=== PATIENT | female | born 1965 | race Caucasian/White ===

== ENCOUNTER 2016-07-05 11:36 | Emergency (ER) | payer OTHER ==
[~2016-07-05] VITALS: Ht 170.2 cm; Wt 99.8 kg
[2016-07-05] MEDS ORDERED: BIOT10TA2 PO (11:53)
[2016-07-05] MEDS ORDERED: HYDR12.55 PO (11:53)
[2016-07-05] MEDS ORDERED: MULT1TAB10 PO (11:53)
[2016-07-05] MEDS ORDERED: CALCTAB97 PO (11:53)
[2016-07-05] MEDS ORDERED: VITA500T53 PO (11:53)
[2016-07-05 12:41] VITALS: BP 141/94
[2016-07-05] MEDS ORDERED: ULTR50TA PO (12:41)
--- NOTE | 2016-07-05 12:45 | REP ---
LEFT KNEE, FIVE VIEWS: HISTORY: Pain. There is no acute fracture or dislocation. There is narrowing of the joint spaces. Osteophytes are present on the tibia and patella. Calcification is present posterior to the joint space. This represents ligamentous or tendon calcification. IMPRESSION: Degenerative change as described above. Signed by Bernard Laboy MD 07/05/2016 01:30 P
== END 2016-07-05 12:53 | disposition home or self-care (01) ==
LOC: M ED 12:15
DX: M17.12 Unilateral primary osteoarthritis, left knee (principal); E66.9 Obesity, unspecified; Z98.84 Bariatric surgery status; F17.210 Nicotine dependence, cigarettes, uncomplicated; Z79.899 Other long term (current) drug therapy

== ENCOUNTER → 2016-07-15 | Outpatient (REF) | payer OTHER ==
[~2016-07-15] MED LIST: BIOT10TA2 PO; CALCTAB97 PO; HYDR12.55 PO; MULT1TAB10 PO; ULTR50TA PO; VITA500T53 PO
[2016-07-15 20:06] LABS: BASO % 0.6 % (0.0-1.0); EOS # 0.2 K/mm3 (0.0-0.50); EOS % 3.2 % (0.0-3.0); LARGE UNSTAINED CELL # 0.1 K/mm3 (0.0-0.4); LARGE UNSTAINED CELL % 1.4 % (0.0-4.0); LYMPH # 1.8 K/mm3 (1.5-4.5); MEAN CORPUSCULAR HGB CONC 32.2 g/dl (32.0-36.5); MEAN CORPUSCULAR VOLUME 86.9 fl (80.0-96.0); MONO # 0.3 K/mm3 (0.0-0.8); MONO % 4.3 % (0.0-5.0); NEUTROPHILS # 3.6 K/mm3 (1.8-7.7); NEUTROPHILS % 60.6 % (36.0-66.0); PLATELET COUNT, AUTOMATED 264 k/mm3 (150-450); RED CELL DISTRIBUTION WIDTH 13.7 % (11.5-14.5); WHITE BLOOD COUNT 5.9 K/mm3 (4.0-10.0)
[2016-07-15 20:21] LABS: ALBUMIN 3.6 GM/DL (3.2-5.2); ALBUMIN/GLOBULIN RATIO 1.09 (1.00-1.93); ALKALINE PHOSPHATASE 121 U/L (45-117); ALT/SGPT 26 U/L (12-78); ANION GAP 6 MEQ/L (8-16); AST/SGOT 18 U/L (15-37); BILIRUBIN,TOTAL 0.4 MG/DL (0.2-1.0); BLOOD UREA NITROGEN 14 MG/DL (7-18); CALCIUM LEVEL 8.9 MG/DL (8.5-10.1); CARBON DIOXIDE LEVEL 29 MEQ/L (21-32); CHLORIDE LEVEL 107 MEQ/L (98-107); CHOLESTEROL LEVEL 155 MG/DL (<200); CREATININE FOR GFR 0.65 MG/DL (0.55-1.02); FREE T4 1.33 NG/DL (0.76-1.46); GLOMERULAR FILTRATION RATE > 60.0 (>51); GLUCOSE, FASTING 88 MG/DL (70-105); MAGNESIUM LEVEL 2.1 MG/DL (1.8-2.4); POTASSIUM SERUM 3.9 MEQ/L (3.5-5.1); SODIUM LEVEL 142 MEQ/L (136-145); TOTAL PROTEIN 6.9 GM/DL (6.4-8.2); TRIGLYCERIDES LEVEL 66 MG/DL (<150)
[2016-07-15 20:39] LABS: FOLATE > 24.0 NG/ML; VITAMIN B12 LEVEL > 2000 PG/ML
[2016-07-16 13:20] LABS: PRETREATED FOLATE FOR RBCFOL 15.9 NG/ML
== END ==
LOC: M SFHCADAM 13:57
PROVIDERS: ATTEND Physician Assistant Medical
DX: Z98.84 Bariatric surgery status (principal)

== ENCOUNTER → 2017-04-29 | Outpatient (CLI) | payer OTHER | LOC: M ADAMS 10:38 | DX: M17.12 Unilateral primary osteoarthritis, left knee (principal) | CPT/HCPCS: 73564 ==

== ENCOUNTER → 2017-05-23 | Outpatient (CLI) | payer OTHER | LOC: M WHC 08:27 | DX: Z12.31 Encounter for screening mammogram for malignant neoplasm of breast (principal) | CPT/HCPCS: 77067 ==

== ENCOUNTER → 2018-07-13 | Outpatient (CLI) | payer BC, OTHER ==
[~2018-07-13] MED LIST changes: -ULTR50TA PO; +ULTR50TA8 PO; +VITA500T17 PO; -VITA500T53 PO
--- NOTE | 2018-07-14 23:45 | ECHO ---
DATE OF PROCEDURE: 07/13/2018 REFERRING PROVIDER: Deana Dimas Physician Turf Sales Person INDICATION: Pulmonary hypertension. HEIGHT: 170 cm WEIGHT: 117.9 kg 2D MEASUREMENTS: Left atrium: 4.1 cm Ventricular septum: 1.12 cm Posterior wall: 1.14 cm Left ventricle diastole: 4.1 cm Aortic root: 2.9 cm LVOT: 2.0 cm Inferior vena cava: 1.9 cm (more than 50% respiratory variation). DOPPLER MEASUREMENTS: Aortic valve velocity: 154 cm/s LVOT velocity: 96.1 cm/s LVOT VTI: 20.5 cm No mitral regurgitation. Mitral E velocity: 98.0 cm/s Mitral A velocity: 81.0 cm/s Mitral deceleration time: 268 ms Very mild tricuspid regurgitation. Estimated right ventricle systolic pressure: 27-32 mmHg assuming a right atrial pressure of 5-10 mmHg. No pulmonic regurgitation. Pulmonary acceleration time: 197 ms MITRAL ANNULAR TISSUE DOPPLER: E prime septal: 7.4 cm/s E prime lateral: 10.7 cm/s DESCRIPTION: Rhythm was sinus. Image quality was fair. No pericardial effusion. This was a 2D, M-mode, color flow Doppler and pulse wave Doppler examination and included mitral annular tissue Doppler. CONCLUSIONS: 1. Normal left ventricle internal dimensions and wall thickness. Normal regional left ventricular (LV) wall motion and wall thickening. Normal LV systolic function. Left ventricular ejection fraction (LVEF) 59% (2D). Normal LV diastolic function. 2. Mild mitral annular calcification. No mitral regurgitation. 3. Mild left atrial dilatation. 4. Suggestive of normal estimated right ventricle systolic pressure and pulmonary artery systolic pressure.
== END ==
LOC: M CARPUL 08:11
PROVIDERS: ATTEND Physician Assistant Medical
DX: I27.20 Pulmonary hypertension, unspecified (principal)

== ENCOUNTER → 2018-07-24 | Outpatient (REF) | payer OTHER ==
[2018-07-24 13:19] LABS: BASO # 0.1 10^3/uL (0.0-0.2); BASO % 1.1 % (0.0-1.0); EOS # 0.2 10^3/uL (0.0-0.50); EOS % 3.5 % (0.0-3.0); LYMPH # 1.7 10^3/uL (1.5-4.5); LYMPH % 30.3 % (24.0-44.0); MEAN CORPUSCULAR HEMOGLOBIN 27.3 pg (27.0-33.0); MEAN CORPUSCULAR HGB CONC 31.8 g/dl (32.0-36.5); MEAN CORPUSCULAR VOLUME 85.8 fl (80.0-96.0); MONO # 0.4 10^3/uL (0.0-0.8); MONO % 7.5 % (0.0-5.0); NEUTROPHILS # 3.1 10^3/uL (1.8-7.7); NEUTROPHILS % 57.4 % (36.0-66.0); PLATELET COUNT, AUTOMATED 262 10^3/uL (150-450); RED BLOOD COUNT 5.13 10^6/uL (4.00-5.40); WHITE BLOOD COUNT 5.4 10^3/uL (4.0-10.0)
[2018-07-24 13:31] LABS: ALBUMIN 3.3 GM/DL (3.2-5.2); ALT/SGPT 26 U/L (12-78); BILIRUBIN,TOTAL 0.5 MG/DL (0.2-1.0); BLOOD UREA NITROGEN 15 MG/DL (7-18); CALCIUM LEVEL 8.9 MG/DL (8.5-10.1); CARBON DIOXIDE LEVEL 30 MEQ/L (21-32); CHLORIDE LEVEL 107 MEQ/L (98-107); CHOLESTEROL LEVEL 187 MG/DL (<200); CHOLESTEROL RISK RATIO 2.968 (<5); CREATININE FOR GFR 0.62 MG/DL (0.55-1.30); FERRITIN 112 NG/ML (8-252); FREE T4 1.16 NG/DL (0.76-1.46); GLOMERULAR FILTRATION RATE > 60.0 (>51); GLUCOSE, FASTING 79 MG/DL (70-100); HDL CHOLESTEROL 63 MG/DL (>40); IRON (FE) 112 UG/DL (50-170); LDL CHOLESTEROL 108 MG/DL (<100); NON-HDL-C 124 MG/DL; PERCENT SATURATION 29.3 % (13.2-45.0); POTASSIUM SERUM 4.4 MEQ/L (3.5-5.1); SODIUM LEVEL 141 MEQ/L (136-145); TOTAL IRON BINDING CAPACITY 382 UG/DL (250-450); TOTAL PROTEIN 6.9 GM/DL (6.4-8.2); TRIGLYCERIDES LEVEL 79 MG/DL (<150)
[2018-07-24 13:36] LABS: FOLATE 19.2 NG/ML; TOTAL 25(OH) VITAMIN D 30.3 NG/ML (30.0-100.0); VITAMIN B12 LEVEL 527 PG/ML
== END ==
LOC: M SFHCADAM 11:03
PROVIDERS: ATTEND Physician Assistant Medical
DX: Z00.00 Encounter for general adult medical examination without abnormal findings (principal); I27.20 Pulmonary hypertension, unspecified; E55.9 Vitamin D deficiency, unspecified; Z98.84 Bariatric surgery status; H53.9 Unspecified visual disturbance

== ENCOUNTER 2019-04-03 09:08 | Emergency (ER) | payer OTHER ==
[~2019-04-03] VITALS: Ht 170.2 cm; Wt 127.3 kg
[2019-04-03] MEDS ORDERED: FERR325T18 PO (09:14)
[2019-04-03] MEDS ORDERED: KETOROLAC 60 MG/2 ML VIAL (J1885) IM ONE (09:45)
[2019-04-03] MEDS ORDERED: ACETAMINOPHEN 500 MG TAB PO ONE (10:15)
--- NOTE | 2019-04-03 10:55 | REP ---
Left rib series: Five views including PA chest. History: Pain after fall. Findings: PA chest radiograph shows no evidence of pneumothorax or hydrothorax. Mediastinum is not widened. Pleural angles are sharp. Heart size. Lung olson are clear. Multiple views of the left rib cage show no visible rib fracture or bony destructive lesion. Impression: Negative left rib radiographs. No rib fracture visible. Electronically Signed by Teddy Alexis MD 04/03/2019 09:34 A
[2019-04-03] MEDS ORDERED: PERCOCET 5MG/325MG TAB PO ONE (11:00)
--- NOTE | 2019-04-03 12:24 | REP ---
CT CHEST WITHOUT CONTRAST: HISTORY: Moderate to severe left rib pain. Comparison is made with today's rib radiographs. CT FINDINGS: There is no evidence of pulmonary contusion, hemothorax, or pneumothorax on either side. There is mild bibasilar platelike atelectasis, right a little bit more prominent than left. No pulmonary contusion is seen. Lung olson are otherwise clear. No extrathoracic contusion or hematoma is appreciated. Bone window settings show degenerative disc changes in the thoracic spine. No rib fracture or deformity is seen. No other fracture is appreciated. There is no evidence of mediastinal hematoma or mass. Mild vascular calcification is observed along the distribution of the coronary arteries. The patient is status post gastric bypass procedure. Upper abdominal images demonstrate a very large heterogeneous infiltrative-appearing mass occupying a significant portion of the right lobe of the liver, 13.7 x 8.4 cm in greatest transverse dimension. This extends off the bottom of the imaging field of view. Hepatobiliary malignancy must be suspected. No splenic abnormality is seen. No bony destructive lesion is appreciated. IMPRESSION: 1. Bibasilar platelike atelectasis. No rib lesion seen. No rib fracture noted. 2. Patient status post gastric bypass procedure. 3. There is a very large heterogeneous mass in the right lobe of the liver suspicious for primary hepatobiliary malignancy, 13.7 x 8.4 cm. This extends off the imaging field of view. Consider CT abdomen and pelvis, preferably with IV and oral contrast, if feasible. Electronically Signed by Teddy Alexis MD 04/03/2019 12:36 P
[2019-04-03] MEDS: GASTROGRAFIN SOLUTION 30ML PO SCH ×2 (12:28→13:02)
[2019-04-03 12:39] LABS: BASO # 0.1 10^3/uL (0.0-0.2); BASO % 0.9 % (0.0-1.0); EOS # 0.2 10^3/uL (0.0-0.5); EOS % 2.4 % (0.0-3.0); HEMATOCRIT 44.7 % (36.0-47.0); HEMOGLOBIN 13.7 g/dl (12.0-15.5); LYMPH % 28.8 % (24.0-44.0); MEAN CORPUSCULAR HEMOGLOBIN 26.8 pg (27.0-33.0); MEAN CORPUSCULAR HGB CONC 30.6 g/dl (32.0-36.5); MEAN CORPUSCULAR VOLUME 87.5 fl (80.0-96.0); MONO # 0.5 10^3/uL (0.0-0.8); MONO % 6.9 % (0.0-5.0); NEUTROPHILS # 4.1 10^3/uL (1.5-8.5); NEUTROPHILS % 60.7 % (36.0-66.0); PLATELET COUNT, AUTOMATED 277 10^3/uL (150-450); RED BLOOD COUNT 5.11 10^6/uL (4.00-5.40); WHITE BLOOD COUNT 6.8 10^3/uL (4.0-10.0)
[2019-04-03 13:00] LABS: ALBUMIN 3.6 GM/DL (3.2-5.2); ALT/SGPT 48 U/L (12-78); BILIRUBIN,DIRECT 0.2 MG/DL (0.0-0.2); BILIRUBIN,TOTAL 0.6 MG/DL (0.2-1.0); BLOOD UREA NITROGEN 15 MG/DL (7-18); CALCIUM LEVEL 8.5 MG/DL (8.5-10.1); CARBON DIOXIDE LEVEL 26 MEQ/L (21-32); CHLORIDE LEVEL 107 MEQ/L (98-107); CREATININE FOR GFR 0.64 MG/DL (0.55-1.30); GLOMERULAR FILTRATION RATE > 60.0 (>51); GLUCOSE, FASTING 94 MG/DL (70-100); LIPASE 96 U/L (73-393); POTASSIUM SERUM 3.9 MEQ/L (3.5-5.1); SODIUM LEVEL 141 MEQ/L (136-145); TOTAL PROTEIN 6.9 GM/DL (6.4-8.2)
[2019-04-03] MEDS ORDERED: ISOVUE-370 76% 100ML VIAL (Q9967) As Ordered ONE (14:00)
[2019-04-03] MEDS ORDERED: MORPHINE 4 MG/ML 1ML VIAL/SYRINGE (J2270) IV ONE (14:30)
--- NOTE | 2019-04-03 14:44 | REP ---
CT ABDOMEN/PELVIS WITH IV AND ORAL CONTRAST: HISTORY: Suspicious liver mass seen on chest CT study. No comparison study. CT CONTRAST DOSE: 100 mL of intravenous Isovue-[address] FINDINGS: Digital preliminary fire technician radiograph demonstrates a few loops of air-filled small bowel in the left abdomen. The liver silhouette is enlarged on the fire technician view. The lung bases demonstrate minimal linear discoid atelectasis. The patient is status post gastric bypass and cholecystectomy. The spleen is normal in size, homogeneous in texture. Normal adrenal glands are seen bilaterally. Abdominal CT study confirms the presence of a heterogeneous, large solid mass in the right lobe of the liver occupying much of the right lobe of the liver as seen on CT. There is patchy enhancement within the lesion. The lesion's overall dimensions are 16.3 cm craniocaudal by 13.1 cm anteroposterior by 10.2 cm right to left. The mass occupies the inferior aspect of the liver, and there is overall hepatomegaly as a result. The mass is large and confluent. There is no evidence of upper abdominal lymphadenopathy or retroperitoneal lymphadenopathy. No pancreatic mass lesion is seen. The kidneys enhance symmetrically. The right kidney is compressed posteriorly by the liver mass. No hydronephrosis is seen. Small and large bowel loops are unremarkable. No bowel wall mass lesion is observed. The uterus is heterogeneous and enlarged, consistent with fibroid change. It measures 9.9 cm right to left by 9.1 cm in length by 4.4 cm anterior to posterior. No visible ovarian mass is seen. The appendix is not directly visualized, but there are no inflammatory changes. No abdominal wall defect is seen. No bony destructive lesion is observed. IMPRESSION: 1. There is an irregular heterogeneously enhancing 16.3 cm right lobe hepatic mass. There is no evidence of intra-abdominal lymphadenopathy or bowel wall mass. This is most compatible with primary cholangiocarcinoma or hepatocellular carcinoma. If there are comparison CT studies, these would be most helpful for further review. 2. Nodular enlargement of the uterus consistent with fibroids. 3. Status post cholecystectomy and gastric bypass. Electronically Signed by Teddy Alexis MD 04/03/2019 03:08 P
[2019-04-03 15:15] VITALS: BP 183/90
[2019-04-03] MEDS ORDERED: IBUP80TA PO (15:24)
[2019-04-03] MEDS ORDERED: ACET-683 PO (15:24)
--- NOTE | 2019-04-07 14:21 | ED PDOC ---
Post-Departure Follow-Up michelle levi faxed formal report of ct abd/p for fu Hattie Williamson MD Apr 07, 2019 14:21
--- NOTE | 2019-04-07 14:22 | ED PDOC ---
Post-Departure Follow-Up michelle levi faxed formal report of ct chest for fu Hattie Williamson MD Apr 07, 2019 14:22
== END 2019-04-03 15:28 | disposition home or self-care (01) ==
LOC: M ED 09:08
DX: S20.02XA Contusion of left breast, initial encounter (principal); Y92.009 Unspecified place in unspecified non-institutional (private) residence as the place of occurrence of the external cause; Y93.01 Activity, walking, marching and hiking; Y99.9 Unspecified external cause status; R07.81 Pleurodynia; N85.2 Hypertrophy of uterus; K76.89 Other specified diseases of liver; J98.11 Atelectasis; Z78.0 Asymptomatic menopausal state; Z91.030 Bee allergy status; Z98.84 Bariatric surgery status; W01.190A Fall on same level from slipping, tripping and stumbling with subsequent striking against furniture, initial encounter
CPT/HCPCS: 71101; 71250; 74177; 80048; 80076; 83690; 85025; 96372; 96374; 99284; J1885; J2270; Q9963; Q9967

== ENCOUNTER → 2019-12-22 | Outpatient (CLI) | payer OTHER ==
[~2019-12-22] MED LIST changes: +ACET-683 PO; +FERR325T18 PO; +IBUP80TA PO
[2019-12-22 14:18] LABS: PERCENT SATURATION 18.2 % (13.2-45.0); PREALBUMIN 20.5 MG/DL (20.0-40.0)
[2019-12-22 14:24] LABS: TOTAL 25(OH) VITAMIN D 33.4 NG/ML (30.0-100.0)
[2019-12-22 14:25] LABS: FOLATE 14.6 NG/ML (>5.4)
[2019-12-28 11:12] LABS: VITAMIN A, RETINOL LEVEL 48.9 ug/dL (20.1-62.0); VITAMIN B1 LEVEL WHOLE BLOOD 158.7 nmol/L (66.5-200.0); VITAMIN B6,PYRIDOXAL PHOSPHATE 5.7 ug/L (2.0-32.8)
== END ==
LOC: M LABDRWAD 09:06
PROVIDERS: ATTEND Physician Assistant
DX: R63.5 Abnormal weight gain (principal)

== ENCOUNTER → 2020-05-02 | Outpatient (CLI) | payer OTHER ==
[~2020-05-02] MED LIST changes: +ISOVUE-370 76% 100ML VIAL As Ordered ONE
--- NOTE | 2020-05-03 07:00 | REP ---
INDICATION: HEMANGIOMA LIVER. COMPARISON: 04/03/2019 TECHNIQUE: Axial contrast-enhanced images from the lung bases to the pubic symphysis using 100 cc Isovue 370 intravenous contrast material. Delayed images of the abdomen along with coronal and sagittal reformations obtained.. This CT examination was performed using the following dose reduction techniques: Automated exposure control, adjustment of mA and/or kv according to the patient's size, and the use of iterative reconstruction technique. FINDINGS: Giant cavernous hemangioma occupying much of the right hepatic and medial left hepatic lobes is again identified and essentially stable. No new hepatic lesions are appreciated. Spleen, pancreas, bilateral adrenal glands and kidneys are normal. Evidence for prior cholecystectomy. Evidence for prior gastric bypass surgery noted. The enteric system including small and large bowel appears normal. No evidence for obstruction or acute inflammatory process. Normal terminal ileum and appendix are identified in the right lower quadrant. Pelvis demonstrates normal bladder and enlarged multilobulated myomatous uterus. No ascites. No free air. No intraperitoneal or retroperitoneal adenopathy. Abdominal aorta and vasculature appear normal. Musculoskeletal structures are intact and without acute osseous abnormality. IMPRESSION: 1. No acute abdominopelvic pathology appreciated. 2. Stable complex large hepatic mass consistent with the given history of giant cavernous hepatic hemangioma remains stable. 3. Enlarged multilobulated myomatous uterus remains stable. <Electronically signed by Kiran Dubon > 05/03/20 [id number]
== END ==
LOC: M RAD 11:41
PROVIDERS: ATTEND Surgery
DX: D18.03 Hemangioma of intra-abdominal structures (principal)
CPT/HCPCS: 74177; Q9967

== ENCOUNTER → 2020-06-09 | Outpatient (CLI) | payer OTHER ==
[~2020-06-09] MED LIST changes: +CALC250T PO; +D31000TA2 PO; +IRON27TA2 PO; -ISOVUE-370 76% 100ML VIAL As Ordered ONE; +VITMTA PO
== END ==
LOC: M LABSMTC 09:52
PROVIDERS: ATTEND Anesthesiology
DX: Z01.812 Encounter for preprocedural laboratory examination (principal); Z20.822 Contact with and (suspected) exposure to COVID-19

== ENCOUNTER 2020-06-14 06:07 | Day surgery (SDC) | payer OTHER ==
[~2020-06-14] VITALS: Ht 170.2 cm; Wt 134.6 kg
[2020-06-14] MEDS ORDERED: ceFAZolin SOD 2 GM in IV 1 EA IV ONE (07:00)
[2020-06-14] MEDS ORDERED: LR 1,000 ML IV ONE (07:00)
[2020-06-14] MEDS ORDERED: dexameTHASONE 4 MG/ML 1ML VIAL (J1100 PER 1MG) As Ordered ONE ×2 (07:13→07:20)
[2020-06-14] MEDS ORDERED: BUPIVACAINE HCL 0.5% 10ML VIAL As Ordered ONE (07:13)
[2020-06-14] MEDS ORDERED: LIDOCAINE 1% MDV 20ML VIAL As Ordered ONE (07:13)
[2020-06-14] MEDS ORDERED: propofoL 200 MG/20 ML VIAL As Ordered ONE ×2 (07:20→08:10)
[2020-06-14] MEDS ORDERED: LIDOCAINE 2% 100MG/5ML SDV (FOR ANES.) As Ordered ONE (07:20)
[2020-06-14] MEDS ORDERED: KETOROLAC 60MG 2ML VIAL As Ordered ONE (07:20)
[2020-06-14] MEDS ORDERED: ONDANSETRON 4MG/2ML VIAL As Ordered ONE (07:20)
[2020-06-14] MEDS ORDERED: MIDAZOLAM INJ 2MG/2ML VIAL (J2250 PER 1MG) As Ordered ONE (07:20)
[2020-06-14] MEDS ORDERED: fentaNYL 100 MCG/2 ML INJECTION (J3010) As Ordered ONE (07:21)
[2020-06-14] MEDS ORDERED: ACETAMINOPHEN 1000MG 100ML IV BTL (OFIRMEV) (J0131 PER 10MG) As Ordered ONE (08:05)
[2020-06-14] MEDS ORDERED: HYDR-3713 PO (08:50)
[2020-06-14 09:15] VITALS: BP 128/75
[2020-06-14] MEDS ORDERED: fentaNYL 100 MCG/2 ML INJECTION (J3010) IV PRN (09:40)
[2020-06-14] MEDS ORDERED: METOCLOPRAMIDE INJ 10MG/2ML VIAL (J2765 PER 1) IV PRN (09:40)
[2020-06-14] MEDS ORDERED: LR 1,000 ML IV SCH (09:40)
[2020-06-14] MEDS ORDERED: ONDANSETRON 4MG/2ML VIAL IV PRN (09:40)
[2020-06-14] MEDS ORDERED: PERCOCET 5MG/325MG TAB PO PRN (09:40)
--- NOTE | 2020-06-14 10:02 | RO ---
OPERATIVE NOTE DATE OF OPERATION: 06/14/2020 PREOPERATIVE DIAGNOSIS: Left foot bunion, hallux valgus and 2nd hammertoe. POSTOPERATIVE DIAGNOSIS: Left foot bunion, hallux valgus and 2nd hammertoe. PROCEDURE: Left foot bunionectomy with 1st metatarsal osteotomy, Fabian osteotomy and 2nd toe flexor tenotomy. SURGEON: Alfredo Brooks DPM TERRITORY SERVICE REPRESENTATIVE: None. ANESTHESIA: Monitored anesthesia care, preop injection of 20 mL of 1:1 mixture of 1% Lidocaine plain and 0.5% Marcaine plain. ESTIMATED BLOOD LOSS: Minimal. MATERIALS: Arthrex 3.5 headless screw, Arthrex DynaNite staple, 3-0 and 4-0 Vicryl and 4-0 nylon. INJECTABLES: 1 mL Decadron 4 mg per mL. COMPLICATIONS: None. CONDITION: Stable. INDICATIONS: Sharla De Souza is a 55-year-old female who presents to [facility] with complaints of painful bunion and 2nd hammertoe on her left foot. She presents today for surgical correction. The patient site and side were identified and marked in preoperative area. Consent was reviewed and obtained. All risks, complications and alternatives to the procedure were explained to the patient in detail, all questions were answered. DESCRIPTION OF PROCEDURE: The patient was brought to the operating room and placed on the operating room table in supine position. Monitored anesthesia care was delivered by the anesthesia team. Preop injection of 20 mL of 1:1 mixture of 1% Lidocaine plain and 0.5% Marcaine plain were injected into left foot. The left foot was prepped and draped in normal sterile fashion. Tourniquet was applied to the left ankle and inflated to 225 mmHg. Dorsal incision was made over the 1st metatarsal and carried through with #15 blade. Dissection was carried down to the 1st metatarsocuneiform joint. T-capsulotomy was performed exposing the metatarsal head. Following this a lateral release was performed releasing the adductor tendon, lateral capsule and sesamoidal ligament. McGlamry elevator was used to release the plantar structures. Following this the medial eminence was resected with sagittal saw and osteotomy was performed of the metatarsal head transposing it laterally. This was fixated with Arthrex 3.5 headless compression screw. Remaining bone edges were removed with sagittal saw and smoothed with rasp. Following this attention was paid to the proximal phalanx. A medial wedge of the cortex was removed using sagittal saw and the toe was placed in more rectus medial position and fixated with Arthrex DynaNite staple. Site was irrigated with saline. Capsular repair was performed with 3-0 Vicryl, subcutaneous tissues closed with 4-0 Vicryl and skin closed with 4-0 nylon. Attention was paid to the 2nd toe. A percutaneous flexor tenotomy was performed using 18-gauge needle at the plantar surface of the 2nd toe. Good improvement in the position was noted. 1 mL Decadron was injected. Sterile dressings were applied. Tourniquet was deflated. The patient was brought to PACU with vital signs stable and neurovascular status intact. She will be partial weightbearing. She will follow up in office in two days.
== END 2020-06-14 09:40 | disposition home or self-care (01) ==
LOC: M SDC 06:07
PROVIDERS: ATTEND Podiatrist Foot & Ankle Surgery
DX: M21.612 Bunion of left foot (principal); M20.12 Hallux valgus (acquired), left foot; M20.42 Other hammer toe(s) (acquired), left foot; K76.9 Liver disease, unspecified; Z91.030 Bee allergy status; Z79.899 Other long term (current) drug therapy
CPT/HCPCS: 28232; 28299; 88300; 97116; C1713; J0131; J0690; J1100; J2250; J2405; J3010

== ENCOUNTER → 2021-03-07 | Outpatient (CLI) | payer OTHER ==
[~2021-03-07] MED LIST changes: +HYDR-3713 PO
== END ==
LOC: M WHC 08:39
PROVIDERS: ATTEND Nurse Practitioner Women's Health
DX: Z12.31 Encounter for screening mammogram for malignant neoplasm of breast (principal); Z78.0 Asymptomatic menopausal state

== ENCOUNTER → 2021-03-07 | Outpatient (REF) | payer OTHER | LOC: M SFHCWAGY 13:22 | PROVIDERS: ATTEND Nurse Practitioner Women's Health | DX: Z12.4 Encounter for screening for malignant neoplasm of cervix (principal); Z77.9 Other contact with and (suspected) exposures hazardous to health ==

== ENCOUNTER → 2021-06-05 | Outpatient (CLI) | payer OTHER ==
[~2021-06-05] MED LIST changes: -D31000TA2 PO; +VITA100093 PO
== END ==
LOC: M ADAMS 11:15
PROVIDERS: ATTEND Physician Assistant Medical
DX: M25.561 Pain in right knee (principal); M17.11 Unilateral primary osteoarthritis, right knee

== ENCOUNTER → 2021-06-05 | Outpatient (REF) | payer OTHER ==
[2021-06-05 12:45] LABS: BASO # 0.1 10^3/uL (0.0-0.2); EOS # 0.1 10^3/uL (0.0-0.5); EOS % 2.4 % (0.0-3.0); HEMATOCRIT 43.8 % (36.0-47.0); HEMOGLOBIN 14.1 g/dl (12.0-15.5); LYMPH # 1.8 10^3/uL (1.5-5.0); MEAN CORPUSCULAR HEMOGLOBIN 26.9 pg (27.0-33.0); MEAN CORPUSCULAR HGB CONC 32.2 g/dl (32.0-36.5); MEAN CORPUSCULAR VOLUME 83.6 fl (80.0-96.0); MONO # 0.4 10^3/uL (0.0-0.8); MONO % 6.9 % (2.0-8.0); NEUTROPHILS # 3.4 10^3/uL (1.5-8.5); NEUTROPHILS % 58.5 % (36.0-66.0); PLATELET COUNT, AUTOMATED 265 10^3/uL (150-450); RED BLOOD COUNT 5.24 10^6/uL (4.00-5.40); WHITE BLOOD COUNT 5.8 10^3/uL (4.0-10.0)
[2021-06-05 13:34] LABS: ALBUMIN 3.5 GM/DL (3.2-5.2); ALT/SGPT 31 U/L (12-78); BILIRUBIN,TOTAL 0.3 MG/DL (0.2-1.0); BLOOD UREA NITROGEN 19 MG/DL (7-18); CALCIUM LEVEL 8.6 MG/DL (8.5-10.1); CARBON DIOXIDE LEVEL 29 MEQ/L (21-32); CHLORIDE LEVEL 109 MEQ/L (98-107); CHOLESTEROL LEVEL 181 MG/DL (<200); CHOLESTEROL RISK RATIO 2.919 (<5); CREATININE FOR GFR 0.59 MG/DL (0.55-1.30); GLOMERULAR FILTRATION RATE > 60.0 (>51); GLUCOSE, FASTING 78 MG/DL (70-100); HDL CHOLESTEROL 62 MG/DL (>40); IRON (FE) 66 UG/DL (50-170); LDL CHOLESTEROL 97 MG/DL (<100); MAGNESIUM LEVEL 2.2 MG/DL (1.8-2.4); NON-HDL-C 119 MG/DL; PERCENT SATURATION 17.2 % (13.2-45.0); SODIUM LEVEL 142 MEQ/L (136-145); TOTAL IRON BINDING CAPACITY 383 UG/DL (250-450); TOTAL PROTEIN 6.6 GM/DL (6.4-8.2); TRIGLYCERIDES LEVEL 109 MG/DL (<150)
[2021-06-05 13:35] LABS: FOLATE 22.7 NG/ML; FREE T4 1.17 NG/DL (0.76-1.46); TOTAL 25(OH) VITAMIN D 38.2 NG/ML (30.0-100.0); VITAMIN B12 LEVEL 399 PG/ML
== END ==
LOC: M SFHCADAM 10:32
PROVIDERS: ATTEND Physician Assistant Medical
DX: E66.01 Morbid (severe) obesity due to excess calories (principal); Z98.84 Bariatric surgery status; E55.9 Vitamin D deficiency, unspecified

== ENCOUNTER → 2021-06-26 | Outpatient (CLI) | payer OTHER | LOC: M CARPUL 11:32 | PROVIDERS: ATTEND Physician Assistant Medical | DX: R60.1 Generalized edema (principal) ==

== ENCOUNTER → 2022-02-06 | Outpatient (CLI) | payer OTHER | LOC: M SOG 08:02 | PROVIDERS: ATTEND Orthopaedic Surgery Adult Reconstructive Orthopaedic Surgery | DX: M25.761 Osteophyte, right knee (principal) ==

== ENCOUNTER → 2022-03-13 | Outpatient (CLI) | payer OTHER ==
[~2022-03-13] MED LIST changes: +E-Z-GAS II EFFERVESCENT PACKET (SODIUM BICARB./CITRIC ACID/SIMETHICONE) As Ordered ONE; +E-Z-HD 98% w/w 340GM SUSP BTL As Ordered ONE; +E-Z-PAQUE 96% w/w SUSP 176GM BTL As Ordered ONE
== END ==
LOC: M RAD 07:46
PROVIDERS: ATTEND Surgery
DX: Z98.84 Bariatric surgery status (principal); E66.01 Morbid (severe) obesity due to excess calories; R63.5 Abnormal weight gain

== ENCOUNTER → 2022-04-30 | Outpatient (CLI) | payer OTHER ==
[~2022-04-30] MED LIST changes: -E-Z-GAS II EFFERVESCENT PACKET (SODIUM BICARB./CITRIC ACID/SIMETHICONE) As Ordered ONE; -E-Z-HD 98% w/w 340GM SUSP BTL As Ordered ONE; -E-Z-PAQUE 96% w/w SUSP 176GM BTL As Ordered ONE
[2022-04-30 14:40] LABS: BASO # 0.1 10^3/uL (0.0-0.2); BASO % 1.2 % (0.0-1.0); EOS # 0.2 10^3/uL (0.0-0.5); EOS % 4.1 % (0.0-3.0); HEMATOCRIT 44.3 % (36.0-47.0); HEMOGLOBIN 13.7 g/dl (12.0-15.5); LYMPH # 1.7 10^3/uL (1.5-5.0); LYMPH % 30.7 % (24.0-44.0); MEAN CORPUSCULAR HGB CONC 30.9 g/dl (32.0-36.5); MEAN CORPUSCULAR VOLUME 87.2 fl (80.0-96.0); MONO # 0.5 10^3/uL (0.0-0.8); MONO % 8.6 % (2.0-8.0); NEUTROPHILS # 3.1 10^3/uL (1.5-8.5); PLATELET COUNT, AUTOMATED 289 10^3/uL (150-450); RED BLOOD COUNT 5.08 10^6/uL (4.00-5.40); WHITE BLOOD COUNT 5.7 10^3/uL (4.0-10.0)
[2022-04-30 14:43] LABS: HEMOGLOBIN A1c 5.5 % (4.0-6.0)
[2022-04-30 15:03] LABS: TOTAL IRON BINDING CAPACITY 375 UG/DL (250-425)
[2022-04-30 15:05] LABS: ALBUMIN 3.4 G/DL (3.2-5.2); ALKALINE PHOSPHATASE 146 U/L (46-116); ALT/SGPT 21 U/L (7.0-40); AST/SGOT 10 U/L (<34); BILIRUBIN,TOTAL 0.4 MG/DL (0.3-1.2); BLOOD UREA NITROGEN 16 MG/DL (9-23); CALCIUM LEVEL 8.9 MG/DL (8.5-10.1); CARBON DIOXIDE LEVEL 30 MMOL/L (20-31); CHLORIDE LEVEL 109 MMOL/L (98-107); CHOLESTEROL LEVEL 189 MG/DL (<200); CHOLESTEROL RISK RATIO 3.13 (<5); CREATININE FOR GFR 0.67 MG/DL (0.55-1.30); GLOMERULAR FILTRATION RATE > 60.0 (>51); GLUCOSE, FASTING 85 MG/DL (60-100); HDL CHOLESTEROL 60.3 MG/DL (>40); IRON (FE) 74 UG/DL (50-170); LDL CHOLESTEROL 108.5 MG/DL (<100); NON-HDL-C 129 MG/DL; PERCENT SATURATION 19.7 % (13.2-45.0); POTASSIUM SERUM 4.5 MMOL/L (3.5-5.1); SODIUM LEVEL 140 MMOL/L (136-145); TOTAL PROTEIN 6.3 G/DL (5.7-8.2); TRIGLYCERIDES LEVEL 101 MG/DL (<150)
[2022-04-30 15:08] LABS: FERRITIN 69.7 NG/ML (7.3-270.7); THYROID STIMULATING HORMONE 1.459 uIU/ML (0.55-4.78)
[2022-04-30 15:09] LABS: FOLATE 20.67 NG/ML (>5.4)
[2022-04-30 15:13] LABS: VITAMIN B12 LEVEL > 2000 PG/ML (211-911)
== END ==
LOC: M LABDRWAD 09:16
PROVIDERS: ATTEND Physician Assistant
DX: E66.01 Morbid (severe) obesity due to excess calories (principal)

== ENCOUNTER → 2022-04-30 | Outpatient (CLI) | payer OTHER | LOC: M EKG 09:53 | PROVIDERS: ATTEND Physician Assistant | DX: E66.01 Morbid (severe) obesity due to excess calories (principal) ==

== ENCOUNTER → 2022-10-08 | Outpatient (REF) | payer OTHER | LOC: M SFHCWAGY 17:44 | PROVIDERS: ATTEND Nurse Practitioner Family | DX: Z12.4 Encounter for screening for malignant neoplasm of cervix (principal) ==

== ENCOUNTER → 2022-12-03 | Outpatient (CLI) | payer OTHER ==
[2022-12-03 10:35] LABS: HEMATOCRIT 43.1 % (36.0-47.0); HEMOGLOBIN 13.8 g/dl (12.0-15.5); MEAN CORPUSCULAR HEMOGLOBIN 28.1 pg (27.0-33.0); MEAN CORPUSCULAR VOLUME 87.8 fl (80.0-96.0); PLATELET COUNT, AUTOMATED 271 10^3/uL (150-450); RED BLOOD COUNT 4.91 10^6/uL (4.00-5.40); WHITE BLOOD COUNT 4.8 10^3/uL (4.0-10.0)
[2022-12-03 11:00] LABS: ALBUMIN 3.4 G/DL (3.2-5.2); ALKALINE PHOSPHATASE 139 U/L (46-116); ALT/SGPT 30 U/L (7.0-40); AST/SGOT 22 U/L (<34); BILIRUBIN,TOTAL 0.6 MG/DL (0.3-1.2); BLOOD UREA NITROGEN 16 MG/DL (9-23); CARBON DIOXIDE LEVEL 30 MMOL/L (20-31); CHLORIDE LEVEL 106 MMOL/L (98-107); CHOLESTEROL LEVEL 174 MG/DL (<200); CHOLESTEROL RISK RATIO 2.77 (<5); CREATININE FOR GFR 0.64 MG/DL (0.55-1.30); GLOMERULAR FILTRATION RATE > 60.0 (>51); GLUCOSE, FASTING 91 MG/DL (60-100); HDL CHOLESTEROL 62.7 MG/DL (>40); IRON (FE) 83 UG/DL (50-170); LDL CHOLESTEROL 94.1 MG/DL (<100); NON-HDL-C 111.3 MG/DL; PERCENT SATURATION 25.1 % (13.2-45.0); SODIUM LEVEL 142 MMOL/L (136-145); TOTAL IRON BINDING CAPACITY 331 UG/DL (250-425); TOTAL PROTEIN 6.3 G/DL (5.7-8.2); TRIGLYCERIDES LEVEL 86 MG/DL (<150)
[2022-12-03 11:03] LABS: TOTAL 25(OH) VITAMIN D 59.7 NG/ML (20.0-100.0); VITAMIN B12 LEVEL 675 PG/ML (211-911)
== END ==
LOC: M LAB 09:57
PROVIDERS: ATTEND Physician Assistant
DX: Z98.890 Other specified postprocedural states (principal)

== ENCOUNTER → 2023-03-04 | Outpatient (CLI) | payer OTHER ==
[2023-03-04 11:26] LABS: HEMATOCRIT 43.8 % (36.0-47.0); HEMOGLOBIN 14.1 g/dl (12.0-15.5); MEAN CORPUSCULAR HEMOGLOBIN 28.1 pg (27.0-33.0); MEAN CORPUSCULAR HGB CONC 32.2 g/dl (32.0-36.5); MEAN CORPUSCULAR VOLUME 87.4 fl (80.0-96.0); PLATELET COUNT, AUTOMATED 286 10^3/uL (150-450); RED BLOOD COUNT 5.01 10^6/uL (4.00-5.40); WHITE BLOOD COUNT 5.1 10^3/uL (4.0-10.0)
[2023-03-04 11:46] LABS: TOTAL IRON BINDING CAPACITY 364 UG/DL (250-425)
[2023-03-04 11:47] LABS: ALBUMIN 3.5 G/DL (3.2-5.2); ALKALINE PHOSPHATASE 117 U/L (46-116); ALT/SGPT 30 U/L (7.0-40); AST/SGOT 19 U/L (<34); BILIRUBIN,TOTAL 0.5 MG/DL (0.3-1.2); BLOOD UREA NITROGEN 15 MG/DL (9-23); CALCIUM LEVEL 9.6 MG/DL (8.5-10.1); CARBON DIOXIDE LEVEL 30 MMOL/L (20-31); CHLORIDE LEVEL 109 MMOL/L (98-107); GLOMERULAR FILTRATION RATE > 60.0 (>51); GLUCOSE, FASTING 83 MG/DL (60-100); IRON (FE) 53 UG/DL (50-170); PERCENT SATURATION 14.6 % (13.2-45.0); POTASSIUM SERUM 4.3 MMOL/L (3.5-5.1); SODIUM LEVEL 142 MMOL/L (136-145); TOTAL 25(OH) VITAMIN D 57.7 NG/ML (20.0-100.0); TOTAL PROTEIN 6.5 G/DL (5.7-8.2)
[2023-03-04 11:48] LABS: VITAMIN B12 LEVEL 1192 PG/ML (211-911)
== END ==
LOC: M LAB 10:03
PROVIDERS: ATTEND Physician Assistant
DX: Z98.890 Other specified postprocedural states (principal)

== ENCOUNTER → 2023-10-15 | Outpatient (CLI) | payer OTHER | LOC: M WHC 08:30 | PROVIDERS: ATTEND Nurse Practitioner Family | DX: Z12.31 Encounter for screening mammogram for malignant neoplasm of breast (principal) ==

== ENCOUNTER → 2023-10-15 | Outpatient (REF) | payer OTHER | LOC: M SFHCWAGY 15:02 | PROVIDERS: ATTEND Nurse Practitioner Family | DX: L29.2 Pruritus vulvae (principal) ==

== ENCOUNTER → 2024-04-28 | Outpatient (CLI) | payer OTHER ==
[2024-04-28 16:05] LABS: HEMATOCRIT 46.6 % (36.0-47.0)
[2024-04-28 16:08] LABS: HEMATOCRIT 47.1 % (36.0-47.0); HEMOGLOBIN 14.7 g/dl (12.0-15.5); MEAN CORPUSCULAR HEMOGLOBIN 27.6 pg (27.0-33.0); MEAN CORPUSCULAR HGB CONC 31.2 g/dl (32.0-36.5); MEAN CORPUSCULAR VOLUME 88.4 fl (80.0-96.0); PLATELET COUNT, AUTOMATED 286 10^3/uL (150-450); RED BLOOD COUNT 5.33 10^6/uL (4.00-5.40); WHITE BLOOD COUNT 4.8 10^3/uL (4.0-10.0)
[2024-04-28 16:30] LABS: HEMOGLOBIN A1c 5.3 % (4.0-6.0)
[2024-04-28 16:45] LABS: IRON (FE) 78 UG/DL (50-170); PERCENT SATURATION 18.8 % (13.2-45.0); TOTAL IRON BINDING CAPACITY 416 UG/DL (250-425)
[2024-04-28 16:46] LABS: ALBUMIN 3.5 G/DL (3.2-5.2); ALKALINE PHOSPHATASE 151 U/L (35-104); ALT/SGPT 20 U/L (7.0-40); AST/SGOT 19 U/L (<34); BILIRUBIN,TOTAL 0.5 MG/DL (0.3-1.2); BLOOD UREA NITROGEN 14 MG/DL (9-23); CARBON DIOXIDE LEVEL 31 MMOL/L (20-31); CHLORIDE LEVEL 103 MMOL/L (98-107); CHOLESTEROL LEVEL 213 MG/DL (<200); CREATININE FOR GFR 0.58 MG/DL (0.55-1.30); GLOMERULAR FILTRATION RATE > 60.0 (>51); GLUCOSE, FASTING 68 MG/DL (60-100); HDL CHOLESTEROL 81.8 MG/DL (>40); MAGNESIUM LEVEL 2.3 MG/DL (1.8-2.4); NON-HDL-C 131.2 MG/DL; POTASSIUM SERUM 4.9 MMOL/L (3.5-5.1); SODIUM LEVEL 141 MMOL/L (136-145); TOTAL PROTEIN 6.9 G/DL (5.7-8.2); TRIGLYCERIDES LEVEL 71 MG/DL (<150)
[2024-04-28 16:47] LABS: FERRITIN 86.8 NG/ML (7.3-270.7); THYROID STIMULATING HORMONE 1.786 uIU/ML (0.55-4.78); TOTAL 25(OH) VITAMIN D 29.8 NG/ML (20.0-100.0)
[2024-04-28 16:48] LABS: FOLATE 12.9 NG/ML (>5.4); VITAMIN B12 LEVEL 431 PG/ML (211-911)
== END ==
LOC: M PLALAB 09:32
PROVIDERS: ATTEND Physician Assistant Medical
DX: E66.01 Morbid (severe) obesity due to excess calories (principal)

== ENCOUNTER → 2024-11-09 | Outpatient (CLI) | payer OTHER ==
[~2024-11-09] MED LIST changes: -VITA500T17 PO; +VITA500T8 PO
== END ==
LOC: M WHC 15:13
PROVIDERS: ATTEND Nurse Practitioner Family
DX: Z12.31 Encounter for screening mammogram for malignant neoplasm of breast (principal); R92.313 Mammographic fatty tissue density, bilateral breasts

== ENCOUNTER → 2024-11-17 | Outpatient (CLI) | payer OTHER | LOC: M SOG 06:50 | PROVIDERS: ATTEND Orthopaedic Surgery | DX: M25.561 Pain in right knee (principal) ==

== ENCOUNTER → 2024-12-15 | Outpatient (REF) | payer OTHER | LOC: M SFHCWAGY 16:47 | PROVIDERS: ATTEND Nurse Practitioner Family | DX: L29.2 Pruritus vulvae (principal) ==

== ENCOUNTER → 2024-12-29 | Outpatient (CLI) | payer OTHER | LOC: M PLAIMG 06:58 | PROVIDERS: ATTEND Podiatrist Foot & Ankle Surgery | DX: D21.22 Benign neoplasm of connective and other soft tissue of left lower limb, including hip (principal) ==

== ENCOUNTER → 2025-03-16 | Outpatient (CLI) | payer OTHER | LOC: M RAD 08:12 | PROVIDERS: ATTEND Physician Assistant Medical | DX: E66.01 Morbid (severe) obesity due to excess calories (principal); D18.03 Hemangioma of intra-abdominal structures ==